=== PATIENT | male | born 1990 | race African-American/Black ===

== ENCOUNTER 2019-09-27 09:58 | Inpatient (IN) ==
[2019-09-27] MEDS ORDERED: cefTRIAXone 1,000 MG in SODIUM CHLORIDE 0.9% 100 ML IV STA (11:03)
[2019-09-27] MEDS ORDERED: IBUPROFEN 600 MG TABLET PO STA (11:03)
[2019-09-27] MEDS ORDERED: cefTRIAXone 1,000 MG in SYRINGE 1 EACH IV STA (11:08)
[2019-09-27] MEDS ORDERED: methylPREDNISolone SOD SUC 125 MG/2 ML VIAL IV STA (11:31)
[2019-09-27] MEDS ORDERED: methylPREDNISolone SOD SUC 40 MG/1 ML VIAL ONE (11:38)
[2019-09-27 11:40] LABS: Basophils % 0.1 % (0.0-0.8); Hematocrit 52.4 VOL% (42.0-52.0); Hemoglobin 16.7 GM/DL (14.0-18.0); Immature Granulocytes % 0.3 %; Immature Granulocytes Absolute 0.02 #; Lymphocytes # 1.2 10*3/uL (1.4-4.0); Lymphocytes % 18.2 % (21.2-54.2); Mean Corpuscular HGB Conc 31.9 GM/DL (32-36); Mean Corpuscular Volume 85.1 FL (87-102); Mean Platelet Volume 9.7 FL (9.6-12.0); Monocytes % 3.5 % (1.7-12.7); Neutrophils % 77.9 % (38.7-73.9); Platelet Count 220 T/CUMM (130-400); Red Blood Count 6.16 MC/CUMM (3.8-5.5); Red Cell Distribution Width 12.8 % (9.3-17.3); White Blood Count 6.8 T/CUMM (4-12)
[2019-09-27 12:30] LABS: Albumin 3.7 G/DL (3.4-5.0); Bilirubin,Total 1.1 MG/DL (0.2-1.0); Calcium 8.6 MG/DL (8.5-10.1); Ferritin 94.8 ng/ml (26-388); Osmolality,Calculated 268.1 MOS/KG (273-304); Total Protein 8.8 G/DL (6.4-8.3)
[2019-09-27] MEDS ORDERED: GLUCAGON 1 MG VIAL IM PRN (15:45)
[2019-09-27] MEDS ORDERED: DEXTROSE 50% 25 GM/50 ML VIAL IV PRN (15:45)
[2019-09-27] MEDS ORDERED: SODIUM CHLORIDE 0.9% 0 ML IV ONE (18:38)
[2019-09-27] MEDS: ZINC SULFATE 220 MG CAPSULE PO SCH ×2 (18:49→20:43)
[2019-09-27] MEDS: ENOXAPARIN 40 MG/0.4 ML SYRINGE SUBCUT SCH ×2 (18:50→20:42)
[2019-09-27] MEDS: AZITHROMYCIN INJ 500 MG in SODIUM CHLORIDE 0.9% 250 ML IV SCH ×2 (18:50→20:43)
[2019-09-27] MEDS: ALBUTEROL INHALER 18 GM INH SCH (20:11)
[2019-09-28] MEDS: ALBUTEROL INHALER 18 GM INH SCH ×4 (00:51→18:33)
[2019-09-28 06:54] LABS: Basophils % 0.1 % (0.0-0.8); Hematocrit 49.4 VOL% (42.0-52.0); Hemoglobin 16.2 GM/DL (14.0-18.0); Immature Granulocytes % 0.2 %; Immature Granulocytes Absolute 0.02 #; Lymphocytes # 1.1 10*3/uL (1.4-4.0); Lymphocytes % 11.5 % (21.2-54.2); Mean Corpuscular HGB Conc 32.8 GM/DL (32-36); Mean Corpuscular Volume 82.7 FL (87-102); Mean Platelet Volume 10.1 FL (9.6-12.0); Monocytes % 2.8 % (1.7-12.7); Neutrophils % 85.4 % (38.7-73.9); Platelet Count 226 T/CUMM (130-400); Red Blood Count 5.97 MC/CUMM (3.8-5.5); Red Cell Distribution Width 12.6 % (9.3-17.3); White Blood Count 9.3 T/CUMM (4-12)
[2019-09-28 07:14] LABS: Albumin 3.5 G/DL (3.4-5.0); Bilirubin,Total 0.7 MG/DL (0.2-1.0); Calcium 8.7 MG/DL (8.5-10.1); Osmolality,Calculated 274.8 MOS/KG (273-304)
[2019-09-28 07:16] LABS: Ferritin 112.1 ng/ml (26-388)
[2019-09-28] MEDS: ACETAMINOPHEN 325 MG TABLET PO PRN ×3 (08:13→23:03)
[2019-09-28] MEDS: PANTOPRAZOLE 40 MG TABLET PO SCH (08:13)
[2019-09-28] MEDS: cefTRIAXone 1,000 MG in SYRINGE 1 EACH IV SCH (12:10)
[2019-09-28] MEDS: ONDANSETRON 4 MG/2 ML VIAL IV PRN ×2 (12:15→16:10)
[2019-09-28] MEDS: DEXAMETHASONE 4 MG/1 ML VIAL IV SCH (16:05)
[2019-09-28] MEDS ORDERED: AZITHROMYCIN INJ 500 MG in SODIUM CHLORIDE 0.9% 250 ML IV SCH (21:40)
[2019-09-28] MEDS: ENOXAPARIN 40 MG/0.4 ML SYRINGE SUBCUT SCH (21:49)
[2019-09-28] MEDS: AZITHROMYCIN INJ 500 MG in SODIUM CHLORIDE 0.9% 250 ML IV SCH (23:01)
[2019-09-29] MEDS: ALBUTEROL INHALER 18 GM INH SCH ×4 (00:42→18:00)
[2019-09-29] MEDS: ZINC SULFATE 220 MG CAPSULE PO SCH (08:21)
[2019-09-29] MEDS: ASCORBIC ACID 500 MG TABLET PO SCH (08:21)
[2019-09-29] MEDS: PANTOPRAZOLE 40 MG TABLET PO SCH (08:21)
[2019-09-29] MEDS: ACETAMINOPHEN 325 MG TABLET PO PRN (08:23)
[2019-09-29] MEDS: ONDANSETRON 4 MG/2 ML VIAL IV PRN (12:22)
[2019-09-29] MEDS: cefTRIAXone 1,000 MG in SYRINGE 1 EACH IV SCH (12:30)
[2019-09-29] MEDS: DEXAMETHASONE 4 MG/1 ML VIAL IV SCH (16:45)
[2019-09-29] MEDS: ENOXAPARIN 40 MG/0.4 ML SYRINGE SUBCUT SCH (20:58)
[2019-09-30] MEDS: ALBUTEROL INHALER 18 GM INH SCH ×3 (01:05→14:19)
[2019-09-30] MEDS ORDERED: AZITHROMYCIN 250 MG TABLET PO SCH (09:00)
[2019-09-30] MEDS: cefTRIAXone 1,000 MG in SYRINGE 1 EACH IV SCH ×2 (09:00→09:08)
[2019-09-30] MEDS: ASCORBIC ACID 500 MG TABLET PO SCH (09:00)
[2019-09-30 16:27] VITALS: BP 126/75
[2019-09-30] MEDS: DEXAMETHASONE 4 MG/1 ML VIAL IV SCH (17:29)
== END 2019-09-30 16:30 | disposition home or self-care (01) | DRG 177 ==
LOC: N.ED 09:58 → SUATTDRO 15:45 → N.EDINP 15:45 → N.2E 17:30
PROVIDERS: ADMIT Internal Medicine; ATTEND Internal Medicine